=== PATIENT | female | born 1990 | race Caucasian/White ===

== ENCOUNTER 2017-03-15 15:59 | Outpatient (CLI) | payer BC | END 2017-03-15 19:27 | disposition home or self-care (01) | LOC: GENOP 15:59 | DX: O99.89 Other specified diseases and conditions complicating pregnancy, childbirth and the puerperium (principal); R10.9 Unspecified abdominal pain; M54.9 Dorsalgia, unspecified; Z3A.32 32 weeks gestation of pregnancy | CPT/HCPCS: 81001; 82731; 96372; J0702 ==

== ENCOUNTER 2017-03-26 13:50 | Outpatient (CLI) | payer BC | END 2017-03-26 17:05 | LOC: GENOP 13:50 | DX: Z34.03 Encounter for supervision of normal first pregnancy, third trimester (principal); Z3A.34 34 weeks gestation of pregnancy | CPT/HCPCS: 81001; 82962; G0463 ==

== ENCOUNTER → 2021-08-14 | Outpatient (CLI) | payer BC | LOC: DTC 09:18 | DX: E10.9 Type 1 diabetes mellitus without complications (principal); Z71.3 Dietary counseling and surveillance | CPT/HCPCS: G0108 ==